=== PATIENT | male | born 1950 | race Caucasian/White ===

== ENCOUNTER 2019-05-04 21:35 | Emergency (ER) | payer MEDICARE, OTHER ==
[~2019-05-04] VITALS: Ht 188 cm; Wt 79.4 kg
--- OUTSIDE RECORDS SUMMARY | 2019-05-04 21:38 | XMS REPORT | Clinical Summary ---
Author Author [facility] Organization [facility] Address Unknown Phone Unavailable Care Team Providers Care Class A Truck Driver Name Role Phone Ernestine Dunham MD PCP Unavailable Juanito Muhammad MD Unavailable Ralf Wilson MD Unavailable Solomon Armstrong MD Unavailable Curly Perez MD Unavailable Unavailable Ric Mitchell MD Unavailable Allergies Comments Active Allergy Reactions Severity Noted Date Penicillins Swelling 10/16/2013 Medications End Date Status Medication Sig Dispensed Refills Start Date Active Tamsulosin HCl 0.4 MG TAKE ONE 90 Cap 3 CAPSIndications: Benign CAPSULE BY 8 non-nodular prostatic MOUTH EVERY hyperplasia, Urinary DAY frequency Active entacapone (COMTAN) 200 Take 1 Tab by 360 Tab 3 MG tablet mouth four 9 times daily. Active carbidopa-levodopa Take 2 Tabs 540 Tab 3 (SINEMET) 25-250 MG per by mouth 3 9 tablet times daily. 02/12/2019 Active Vilazodone HCl 20 MG TABS Take 40 mg by 90 Tab 0 mouth daily 9 for 90 days. Active buPROPion (WELLBUTRIN, Take 1 tablet 120 Tab 0 ZYBAN) 100 MG SR by mouth four 9 tabletIndications: times daily Depression, unspecified with Sinemet depression type, Anxiety and Entacapone Active naltrexone (DEPADE) 50 MG Take 1 Tab by 90 Tab 0 tabletIndications: mouth daily. 9 Alcohol use disorder, mild, in sustained remission Active busPIRone (BUSPAR) 10 MG Take 1 Tab by 90 Tab 0 tablet mouth four 9 times daily. Take 1 tab by mouth four times daily for one week. If tolerated, take 2 tabs by mouth four time daily for a week 11/28/2018 Active busPIRone (BUSPAR) 30 MG Take 1 Tab by 56 Tab 0 tablet mouth four 9 times daily for 14 days. Take in weeks 3 and 4 10/27/2018 Discontinued gabapentin (NEURONTIN) Take 1 Cap by 270 Cap 3 400 MG mouth 3 times 8 capsuleIndications: daily. Spinal stenosis of lumbar region without neurogenic claudication 10/27/2018 Discontinued esomeprazole (NEXIUM) 40 Take 1 Cap by 90 Cap 3 MG capsuleIndications: mouth every 8 Epigastric pain morning (before breakfast). 11/14/2018 Discontinued naltrexone (DEPADE) 50 MG Take 1 Tab by 90 Tab 0 tabletIndications: mouth daily. 9 Alcohol use disorder, mild, in sustained remission 11/14/2018 Discontinued Vilazodone HCl 20 MG TABS Take 20 mg by 60 Tab 0 mouth daily. 9 10/27/2018 Discontinued methylPREDNISolone Take 1 Tab by 21 Tab 0 (MEDROL DOSEPACK) 4 MG mouth See 9 tablet Admin Instructions. 10/27/2018 Discontinued methylPREDNISolone Take 1 Tab by 21 Tab 0 (MEDROL DOSEPACK) 4 MG mouth See 9 tabletIndications: Admin Cervical radiculopathy Instructions. 10/27/2018 Discontinued acetaminophen-codeine 1 TAB TID 90 Tab 1 (TYLENOL #3) 300-30 MG PRN, SEVERE 9 per tabletIndications: PAIN Cervical radiculopathy PATIENT HAS A PINCHED NERVE ON THE RIGHT NECK WITH SEVERE PAIN. 11/14/2018 Discontinued buPROPion (WELLBUTRIN, Take 1 tablet 120 Tab 0 ZYBAN) 100 MG SR by mouth four 9 tabletIndications: times daily Depression, unspecified with Sinemet depression type, Anxiety and Entacapone 10/27/2018 Discontinued busPIRone (BUSPAR) 30 MG Take 1 Tab by 120 Tab 0 tabletIndications: mouth four 9 Anxiety times daily. 10/27/2018 Discontinued Vilazodone HCl 20 MG TABS Take 20 mg by 90 Tab 0 mouth daily. 9 Active Problems Problem Noted Date Glaucoma suspect of both eyes 10/27/2018 Dysphagia 07/09/2018 Last Assessment & Plan: And weak cough Will check swallow eval Sleep-disordered breathing 07/09/2018 Last Assessment & Plan: Pt with history, obesity and anatomy of the upper airway suggestive of sleep disordered breathing. In addition has associated non restorative sleep,nocturnal awakening, daytime sleepiness, parkinson Discussed with patient the pathophysiology of sleep apnea, diagnosis and treatment options Will go ahead and order a sleep study and further managment as indicated Parasomnia 07/09/2018 Last Assessment & Plan: With acting out dreams Will evaluate on sleep study Nuclear senile cataract of both eyes 07/06/2017 MCI (mild cognitive impairment) 07/04/2017 Dermatitis seborrheica 06/07/2017 Actinic keratosis 06/07/2017 Wart 06/07/2017 Benign non-nodular prostatic hyperplasia 09/03/2015 PD (Parkinson's disease) 03/25/2015 Last Assessment & Plan: Progressing Anxiety 03/25/2015 Periodic limb movements of sleep 03/25/2015 Last Assessment & Plan: Not formally diagnosed, trial of gabapentin did not help Mostly leg jerks at sleep onset Will evaluate on sleep study RBD (REM behavioral disorder) 03/25/2015 Last Assessment & Plan: Clinically suspected Will evaluate on sleep study Erectile dysfunction 03/25/2015 ADD (attention deficit disorder) 09/17/2014 Depression 09/17/2014 Tremor 08/15/2014 Resolved Problems Problem Noted Date Resolved Date S/P laminectomy 03/25/2015 12/09/2015 Elevated BP 08/15/2014 12/09/2015 BPH (benign prostatic hyperplasia) 08/15/2014 09/03/2015 Encounters Care Team Description Date Type Specialty Nakita Arriaza MD Annual Exam 10/27/2018 Office Visit Ophthalmology Ernestine Dunham MD 10/17/2018 Orders Only Geriatric Medicine Juanito Muhammad MD Movement Disorder 08/24/2018 Office Visit Neurology Solomon Armstrong MD Shoulder Pain 08/17/2018 Office Visit Physical Medicine and Rehab from Last 3 Months Immunizations Name Administration Dates Next Due Influenza (whole) 05/20/2014 Influenza Hd 12/30/2016, 12/09/2015 Pneumococcal 13-valent 09/03/2015 Conjugate Vaccine Pneumococcal 03/04/2017 Polysaccharide Tdap 07/12/2016 Family History Medical History Relation Name Comments Diabetes Brother Heart Disease Father Heart Attack Father Cancer Mother Ovarian Cancer Mother Heart Disease Other Relation Name Status Comments Brother Brother Alive Father Mother Other Social History Date Tobacco Use Types Packs/Day Years Used Quit: 06/28/2016 Former Smoker 0.5 40 Smokeless Tobacco: Never Used Tobacco Cessation: Ready to Quit: No; Counseling Given: Yes Drinks/Week oz/Week Comments Alcohol Use Former ETOH abuse No Sex Assigned at Date Recorded Not on file Industry Job Start Date Occupation Not on file Not on file Not on file Travel End Travel History Travel Start No recent travel history available. Last Filed Vital Signs Reading Time Taken Comments Vital Sign 115/75 08/24/2018 10:07 AM CDT Blood Pressure 83 08/24/2018 10:07 AM CDT Pulse 36.3 C (97.4 F) 08/17/2018 5:01 PM CDT Temperature 16 07/18/2018 8:08 AM CDT Respiratory Rate 98% 06/30/2017 2:08 PM CDT Oxygen Saturation - - Inhaled Oxygen Concentration 82.6 kg (182 lb) 08/24/2018 10:07 AM CDT Weight 185.4 cm (6' 1") 08/24/2018 10:07 AM CDT Height 24.01 08/24/2018 10:07 AM CDT Body Mass Index Plan of Treatment Care Team Description Date Type Specialty Juanito Muhammad MD [address] [place] [address] [phone] 01/10/2019 Office Visit Neurology Juanito Muhammad MD [address] [place] [address] [phone] 04/30/2019 Office Visit Neurology Juanito Muhammad MD [address] [place] [address] [phone] 08/01/2019 Office Visit Neurology Health Maintenance Due Date Last Done Comments COLON CANCER SCREENIN1950 COLONOSCOPY HEPATITIS C SCREENING 01/22/1968 AAA Screen 2015 MEDICARE AWV 09/02/2016 09/03/2015 FLU VACCINE > 6 MONTHS 10/19/2018 04/27/2018, 12/30/2016, 12/30/2016, Additional history exists FALL SCREEN 08/18/2019 08/17/2018 TETANUS SHOT (ADULT) 07/12/2026 07/12/2016 PREVNAR >=65 (PCV13) Completed 09/03/2015 PNEUMOVAX >=65 (PPSV23) Completed 03/04/2017 Procedures Comments Procedure Name Priority Date/Time Associated Diagnosis OCT, OPTIC NERVE - OU - Routine 10/27/2018 Other disorders of optic BOTH EYES 11:22 AM CDT disc, 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 Reliability: good and adequate. Temporal progression was stable. Temporal thickness was normal. Superior progression was stable. Superior thickness was normal. Nasal progression was stable. Nasal thickness was normal. Inferior progression was stable. Inferior thickness was normal. Left Eye Images reviewed and comparison made to baseline. Reliability: good and adequate. Temporal progression was stable. Temporal thickness was normal. Superior progression was stable. Superior thickness was normal. Nasal progression was stable. Nasal thickness was normal. Inferior progression was stable. Inferior thickness was normal. Notes Stable green 360 * LIPIDS/CORONARY RISK(SLEH) (10/17/2018 12:03 PM CDT) TRIGLYCERIDES 293 mg/dL [facility] CHOLESTEROL 203 mg/dL [facility] HDL 32 mg/dL [facility] LDL CHOLESTEROL 112 mg/dL [facility] Specimen Narrative Performed At Triglyceride Reference Range: [facility] Low Risk <150 [id number] High Risk 200-499 Very High Risk>=500 Cholesterol Reference Range: Low Risk <200 [id number] High Risk>240 HDL Cholesterol Reference Range: Low Risk >=60 High Risk <40 LDL Cholesterol Reference Range: Optimal<100 Near [id number] Mfbdzyynkl350-729 Mtyl287-461 Very High >=190 Performing Organization Address City/State/Zipcode Phone Number [facility] * CBC W/AUTO DIFF WITH PLATELETS (10/17/2018 12:03 PM CDT) WHITE BLOOD 8.7 3.5 - 10.5 K/ L [facility] CELL COUNT RED BLOOD CELL 5.35 4.63 - 6.08 M/ L [facility] COUNT HEMOGLOBIN 16.1 13.7 - 17.5 GM/DL [facility] HEMATOCRIT 48.5 40.1 - 51.0 % [facility] MEAN 90.7 79.0 - 92.[address] [facility] CORPUSCULAR VOLUME MEAN 30.1 25.7 - 32.[address] [facility] CORPUSCULAR HEMOGLOBIN MEAN 33.2 32.3 - 36.5 GM/DL [facility] CORPUSCULAR HEMOGLOBIN CONC RED CELL 13.9 11.6 - 14.4 % [facility] DISTRIBUTION WIDTH PLATELET COUNT 286 150 - 450 K/CU MM [facility] MEAN PLATELET 10.3 9.4 - 12.[address] [facility] VOLUME NUCLEATED RED 0 0 - 0 /[address] [facility] BLOOD CELLS NEUTROPHILS % 72 % [facility] LYMPHOCYTES % 18 % [facility] MONOCYTES % 8 % [facility] EOSINOPHILS % 1 % [facility] BASOPHILS % 1 % [facility] NEUTROPHILS 6.27 (H) 1.78 - 5.38 K/ L [facility] ABSOLUTE COUNT LYMPHOCYTES 1.55 1.32 - 3.57 K/ L [facility] ABSOLUTE COUNT MONOCYTES 0.70 0.30 - 0.82 K/ L [facility] ABSOLUTE COUNT EOSINOPHILS 0.09 0.04 - 0.54 K/ L [facility] ABSOLUTE COUNT BASOPHILS 0.05 0.01 - 0.08 K/ L [facility] ABSOLUTE COUNT IMMATURE 1 0 - 1 % [facility] GRANULOCYTES Specimen Performing Organization Address City/State/Zipcode Phone Number [facility] * HEMOGLOBIN A1C (10/17/2018 12:03 PM CDT) HEMOGLOBIN A1C 7.7 (H) 4.3 - 6.1 % [facility] Specimen Performing Organization Address City/[facility]/Zipcode Phone Number [facility] [place] * COMPREHENSIVE METABOLIC PANEL (10/17/2018 12:03 PM CDT) TOTAL PROTEIN 7.1 6.0 - 8.3 gm/dL [facility] ALBUMIN 4.2 3.5 - 5.0 g/dL [facility] ALKALINE 69 40 - 150 U/L [facility] PHOSPHATASE BILIRUBIN TOTAL 0.7 0.2 - 1.2 mg/dL [facility] SODIUM 139 136 - 145 meq/L [facility] POTASSIUM 4.0 3.5 - 5.1 meq/L [facility] CHLORIDE 105 98 - 107 meq/L [facility] CO2 24 22 - 29 meq/L [facility] BLOOD UREA 18 7 - 21 mg/dL [facility] NITROGEN CREATININE 0.90 0.57 - 1.25 mg/dL [facility] GLUCOSE 246 (H) 70 - 105 mg/dL [facility] CALCIUM 9.5 8.4 - 10.2 mg/dL [facility] AST (SGOT) 11 5 - 34 U/L [facility] ALT (SGPT) 7 6 - 55 U/L [facility] EGFR 84Comment: ESTIMATED GFR IS mL/min/1.[address] [facility] NOT ACCURATE CREATININE CLEARANCE IN PREDICTING GLOMERULAR FILTRATION RATE. ESTIMATED GFR IS NOT APPLICABLE FOR DIALYSIS PATIENTS. Specimen Performing Organization Address City/State/Zipcode Phone Number [facility] from Last 3 Months Insurance Type Payer Benefit Subscriber ID Effective Phone Address Plan / Dates Group Medicare MEDICARE MEDICARE xxxxxxxxxxx 2015- [address] Present [id number] [place] [address] PPO GENERIC PAYOR GENERIC xxxxxxxxxxxx 1992- PPO - Present GENERIC PAYOR
--- OUTSIDE RECORDS SUMMARY | 2019-05-04 21:38 | XMS REPORT | Summary of Care ---
Author Author [facility] Organization [facility] Address Unknown Phone Unavailable Care Team Providers Care Microfilm Equipment Inspector Name Role Phone Ernestine Dunham MD PCP Unavailable Juanito Muhammad MD Unavailable Ralf Wilson MD Unavailable Solomon Armstrong MD Unavailable Curly Perez MD Unavailable Unavailable Ric Mitchell MD Unavailable Reason for Visit * Reason Comments Annual Exam Encounter Details Care Team Description Date Type Department Nakita Arriaza MD [address] [place] [address]. [place] [address] Annual Exam 10/27/2018 Office Visit Department of Ophthalmology [address] [place] [phone] Allergies Comments Active Allergy Reactions Severity Noted Date Penicillins Swelling 10/16/2013 documented as of this encounter (statuses as of 10/27/2018) Medications End Date Status Medication Sig Dispensed [...] by mouth 3 9 tablet times daily. Active naltrexone (DEPADE) 50 MG Take 1 Tab by 90 Tab 0 tabletIndications: mouth daily. 9 Alcohol use disorder, mild, in sustained remission Active Vilazodone HCl 20 MG TABS Take 20 mg by 60 Tab 0 mouth daily. 9 Active buPROPion (WELLBUTRIN, Take 1 tablet 120 Tab 0 ZYBAN) 100 MG SR by mouth four 9 tabletIndications: times daily Depression, unspecified with Sinemet depression type, Anxiety and Entacapone 10/27/2018 Discontinued gabapentin (NEURONTIN) Take 1 Cap by 270 Cap 3 400 MG mouth 3 times 8 capsuleIndications: daily. Spinal stenosis of lumbar region without neurogenic claudication 10/27/2018 Discontinued esomeprazole (NEXIUM) 40 Take 1 Cap by 90 Cap 3 MG capsuleIndications: mouth every 8 Epigastric pain morning (before breakfast). 10/27/2018 Discontinued methylPREDNISolone Take 1 Tab by [...] ON THE RIGHT NECK WITH SEVERE PAIN. 10/27/2018 Discontinued busPIRone (BUSPAR) 30 MG Take 1 Tab by 120 Tab 0 tabletIndications: mouth four 9 Anxiety times daily. 10/27/2018 Discontinued Vilazodone HCl 20 MG TABS Take 20 mg by 90 Tab 0 mouth daily. 9 documented as of this encounter (statuses as of 10/27/2018) Active Problems Problem Noted Date Glaucoma suspect [...] deficit disorder) 09/17/2014 Depression 09/17/2014 Tremor 08/15/2014 documented as of this encounter (statuses as of 10/27/2018) Resolved Problems Problem Noted Date Resolved Date S/P laminectomy 03/25/2015 12/09/2015 Elevated BP 08/15/2014 12/09/2015 BPH (benign prostatic hyperplasia) 08/15/2014 09/03/2015 documented as of this encounter (statuses as of 10/27/2018) Immunizations Name Administration Dates Next Due Influenza (whole) 05/20/2014 Influenza Hd 12/30/2016, 12/09/2015 Pneumococcal 13-valent 09/03/2015 Conjugate Vaccine Pneumococcal 03/04/2017 Polysaccharide Tdap 07/12/2016 documented as of this encounter Social History Date Tobacco Use Types Packs/Day Years Used Quit: 06/28/2016 Former Smoker 0.5 40 Smokeless Tobacco: Never Used Drinks/Week oz/Week Comments Alcohol Use Former ETOH abuse No Sex Assigned at Date Recorded Not on file Industry Job Start Date Occupation Not on file Not on file Not on file Travel End Travel History Travel Start No recent travel history available. documented as of this encounter Last Filed Vital Signs Not on filedocumented in this encounter Progress Notes * Nakita Arriaza MD - 10/27/2018 9:15 AM CDT Referring Doctor Self Referral No address on file STUDY/STUDIES: OCT RNFL: normal 360 ASSESSMENT: 1. Nuclear senile cataract of both eyes 2. Glaucoma suspect of both eyes - PLAN: 1) Peripheral vision loss - consider tilter nerves with deep cupping, OCT and HVF today obtained - however all looks normal - will consider patient glaucoma suspect by C;D ratio 2) cataract ou - Cataract - visually significant, diminished quality of vision and affecting ac tivities of daily living such as reading, driving, mobility. Risks, benefits, alternative of cataract surgery discussed with patient includin g but not limited to loss of vision, bleeding, infection, glaucoma, retina probl ems, swelling, need for more procedures. Patient elects to proceed with surgery understanding the alternative is to wait or try glasses. Observe for now ATTESTATIONS: I have reviewed the PMH, SH, FHX, ROS, MEDS, ALLERGIES and TECH NOTE, and have u pdated the computerized patient record appropriately. The risks, benefits, and alternatives of treatment were discussed with the patie nt (& family, if present). All questions regarding diagnosis and treatment were answered to the patient's satisfaction. documented in this encounter Plan of Treatment Care Team Description Date Type Specialty Juanito Muhammad MD [address] [place] [address] [phone] 01/10/2019 Office Visit Neurology Juanito Muhammad MD [address] [place] [address] [phone] 04/30/2019 Office Visit Neurology Juanito Muhammad MD [address] [place] [address] [phone] 08/01/2019 Office Visit Neurology Health Maintenance Due Date Last Done Comments COLON CANCER SCREENIN1950 COLONOSCOPY HEPATITIS C SCREENING 01/22/1968 AAA Screen 2015 MEDICARE AWV 09/02/2016 09/03/2015 FLU VACCINE > 6 MONTHS 10/19/2018 04/27/2018, 12/30/2016, 12/30/2016, Additional history exists FALL SCREEN 08/18/2019 08/17/2018 TETANUS SHOT (ADULT) 07/12/2026 07/12/2016 PREVNAR >=65 (PCV13) Completed 09/03/2015 PNEUMOVAX >=65 (PPSV23) Completed 03/04/2017 documented as of this encounter Procedures Comments Procedure Name Priority Date/Time Associated Diagnosis OCT, OPTIC NERVE - OU - Routine 10/27/2018 Other disorders of optic BOTH EYES 11:22 AM CDT disc, 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 Notes Stable green 360 documented in this encounter Visit Diagnoses Diagnosis Nuclear senile cataract of both eyes - Primary Glaucoma suspect of both eyes Preglaucoma, unspecified Other disorders of optic disc, right eye documented in this encounter Insurance Type Payer Benefit Subscriber ID Effective Phone Address Plan / Dates Group Medicare MEDICARE MEDICARE xxxxxxxxxxx 2015- [address] Present [id number] [place] [address] PPO GENERIC PAYOR GENERIC xxxxxxxxxxxx 1992- PPO - Present GENERIC PAYOR documented as of this encounter
--- OUTSIDE RECORDS SUMMARY | 2019-05-04 21:38 | XMS REPORT | Clinical Summary ---
Author Author [facility] Organization [facility] Address Unknown Phone Unavailable Care Team Providers Care Lead Game Designer Name Role Phone Ernestine Dunham MD PCP [...] mouth 3 9 tablet times daily. Active Vilazodone HCl 20 MG TABS Take 40 mg by 0 mouth. Active naltrexone (DEPADE) 50 MG Take 1 Tab by 90 Tab 0 tabletIndications: mouth daily. 9 Alcohol use disorder, mild, in sustained remission 03/22/2019 Active Vilazodone HCl 20 MG TABS Take 40 mg by 90 Tab 0 mouth daily 9 for 90 days. Active buPROPion (WELLBUTRIN, Take 1 tablet 120 Tab 0 ZYBAN) 100 MG SR by mouth four 9 tabletIndications: times daily Depression, unspecified with Sinemet depression type, Anxiety and Entacapone Active busPIRone (BUSPAR) 30 MG Take 1 Tab by 120 Tab 1 tablet mouth four 9 times daily. 12/19/2018 Discontinued Vilazodone HCl 20 MG TABS Take 40 mg by 90 Tab 0 mouth daily 9 for 90 days. 12/19/2018 Discontinued buPROPion (WELLBUTRIN, Take 1 tablet 120 Tab 0 ZYBAN) 100 MG SR by mouth four 9 tabletIndications: times daily Depression, unspecified with Sinemet depression type, Anxiety and Entacapone 12/19/2018 Discontinued naltrexone (DEPADE) 50 MG Take 1 Tab by 90 Tab 0 tabletIndications: mouth daily. 9 Alcohol use disorder, mild, in sustained remission 12/19/2018 Discontinued busPIRone (BUSPAR) 10 MG Take 1 Tab by 90 Tab 0 tablet mouth four 9 times daily. Take 1 tab by mouth four times daily for one week. If tolerated, take 2 tabs by mouth four time daily for a week 11/28/2018 busPIRone (BUSPAR) 30 MG Take 1 Tab by 56 Tab 0 tablet mouth four 9 times daily for 14 days. Take in weeks 3 and 4 Active Problems Problem Noted Date Glaucoma suspect [...] non-nodular prostatic hyperplasia 09/03/2015 PD (Parkinson's disease) (HCCode) 03/25/2015 Last Assessment & Plan: Progressing Anxiety [...] Encounters Care Team Description Date Type Specialty Janene Cunningham NP 11/28/2018 Orders Only Geriatric Medicine Nakita Arriaza MD Annual Exam 10/27/2018 Office Visit Ophthalmology Ernestine Dunham MD 10/17/2018 Orders Only Geriatric Medicine from Last 3 Months Immunizations Name Administration [...] Signs Reading Time Taken Comments Vital Sign 112/69 12/19/2018 9:28 AM CDT Blood Pressure 73 12/19/2018 9:28 AM CDT Pulse 36.3 C (97.4 F) 08/17/2018 5:01 PM CDT Temperature 16 12/19/2018 9:28 AM CDT Respiratory Rate 98% 06/30/2017 2:08 PM CDT Oxygen Saturation - - Inhaled Oxygen Concentration 80.7 kg (177 lb 14.4 oz) 12/19/2018 9:28 AM CDT Weight 185.4 cm (6' 1") 12/19/2018 9:28 AM CDT Height 23.47 12/19/2018 9:28 AM CDT Body Mass Index Plan of Treatment Care Team Description Date Type Specialty Juanito Muhammad MD [address] Floor[address] [place] [address] [phone] 01/10/2019 Office Visit Neurology Juanito Muhammad MD [address] Floor[address] [place] [address] [phone] 04/30/2019 Office Visit Neurology Juanito Muhammad MD [address] [place] [address] [phone] 08/01/2019 Office Visit Neurology Health Maintenance Due [...] Comments Procedure Name Priority Date/Time Associated Diagnosis HEPATIC FUNCTION PANEL Routine 11/28/2018 11:48 AM CDT LIPIDS/CORONARY Routine 11/28/2018 RISK(SLEH) 11:48 AM CDT OCT, OPTIC NERVE - OU - Routine 10/27/2018 Other disorders of optic BOTH EYES 11:22 AM CDT disc, 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 TRIGLYCERIDES 150 mg/dL [facility] CHOLESTEROL 179 mg/dL [facility] HDL 34 mg/dL [facility] LDL CHOLESTEROL 115 mg/dL [facility] Specimen Narrative Performed At Triglyceride Reference Range: [facility] Low Risk <150 [id number] High Risk 200-499 Very High Risk>=500 Cholesterol Reference Range: Low Risk <200 [id number] High Risk>240 HDL Cholesterol Reference Range: Low Risk >=60 High Risk <40 LDL Cholesterol Reference Range: Optimal<100 Near Wutowvp151-559 Acxhcoovox522-252 Fauf318-375 Very High >=190 Performing Organization Address [facility] Phone Number [facility] * HEPATIC FUNCTION PANEL (11/28/2018 11:48 AM CDT) TOTAL PROTEIN 7.5 6.0 - 8.3 gm/dL [facility] ALBUMIN 4.5 3.5 - 5.0 g/dL [facility] BILIRUBIN TOTAL 1.0 0.2 - 1.2 mg/dL [facility] BILIRUBIN 0.3 0.1 - 0.5 mg/dL [facility] DIRECT ALKALINE 56 40 - 150 U/L [facility] PHOSPHATASE AST (SGOT) 10 5 - 34 U/L [facility] ALT (SGPT) <6 (L) 6 - 55 U/L [facility] Specimen Performing Organization Address [facility] Phone Number [facility] * OCT, OPTIC NERVE - OU - [...] was normal. Notes Stable green 360 * CBC W/AUTO DIFF WITH PLATELETS (10/17/2018 [...] CELL 13.9 11.6 - 14.4 % [facility] DISTRIBUTION WIDTH PLATELET COUNT 286 150 - [...] IMMATURE 1 0 - 1 % [facility] GRANULOCYTES Specimen Performing Organization Address City/State/Zipcode Phone Number [facility] * HEMOGLOBIN A1C (10/17/2018 12:03 PM CDT) HEMOGLOBIN A1C 7.7 (H) 4.3 - 6.1 % [facility] Specimen Performing Organization Address City/[facility] Phone Number [facility] * COMPREHENSIVE METABOLIC [...] [address] Present [id number] [place] [address] PPO GENERIC PAYOR GENERIC xxxxxxxxxxxx 1992- PPO - Present GENERIC PAYOR
--- OUTSIDE RECORDS SUMMARY | 2019-05-04 21:38 | XMS REPORT | Clinical Summary ---
Author Author [facility] Organization [facility] Address Unknown Phone Unavailable Care Team Providers Care Pipe Fitter Supervisor Name Role Phone Ernestine Dunham MD PCP Juanito Muhammad MD Unavailable aRlf Wilson MD Unavailable Solomon Armstrong MD Unavailable Curly Perez MD Unavailable Unavailable Ric Mitchell MD Unavailable Allergies Comments Active Allergy Reactions Severity Noted Date Penicillins Swelling 10/16/2013 Medications End Date Status Medication Sig Dispensed Refills Start Date Active Tamsulosin HCl 0.4 MG TAKE ONE 90 Cap 3 CAPSIndications: Benign CAPSULE BY 8 non-nodular prostatic MOUTH EVERY hyperplasia, Urinary DAY frequency Active metformin (GLUCOPHAGE) Take 500 mg 0 500 MG tablet by mouth two times daily. Active famotidine (PEPCID) 20 MG Take 20 mg by 0 tablet mouth two times daily. Active carbidopa-levodopa Take 3 Tabs 810 Tab 3 (SINEMET) 25-250 MG per by mouth 3 9 tablet times daily. Active entacapone (COMTAN) 200 Take 1 Tab by 360 Tab 3 MG tablet mouth four 9 times daily. Active naproxen (NAPROSYN) 500 Take 1 Tab by 60 Tab 1 MG tablet mouth 2 times 0 daily (with meals). With food Active methylPREDNISolone Take 1 Tab by 21 Tab 0 (MEDROL DOSEPACK) 4 MG mouth See 0 tabletIndications: Spinal Admin stenosis of lumbar region Instructions. with radiculopathy Active Gabapentin, Once-Daily, One to three 180 Tab 0 (GRALISE) 300 MG tablets at 0 TABSIndications: Spinal bedtime. stenosis of lumbar region Start at one with radiculopathy tablet at bedtime. Active buPROPion (WELLBUTRIN, Take 1 tablet 120 Tab 1 ZYBAN) 100 MG SR by mouth four 0 tabletIndications: times daily Depression, unspecified with Sinemet depression type, Anxiety and Entacapone Active busPIRone (BUSPAR) 30 MG Take 1 Tab by 120 Tab 1 tablet mouth four 0 times daily. Active Vilazodone HCl 20 MG TABS Take 40 mg by 60 Tab 1 mouth daily. 0 Active naltrexone (DEPADE) 50 MG Take 1 Tab by 30 Tab 1 tabletIndications: mouth daily. 0 Alcohol use disorder, mild, in sustained remission 04/17/2019 Discontinued (Reorder) buPROPion (WELLBUTRIN, Take 1 tablet 120 Tab 1 ZYBAN) 100 MG SR by mouth four 9 tabletIndications: times daily Depression, unspecified with Sinemet depression type, Anxiety and Entacapone 04/17/2019 Discontinued (Reorder) busPIRone (BUSPAR) 30 MG Take 1 Tab by 120 Tab 1 tablet mouth four 9 times daily. 04/17/2019 Discontinued (Reorder) Vilazodone HCl 20 MG TABS Take 40 mg by 60 Tab 1 mouth daily. 9 04/17/2019 Discontinued (Reorder) naltrexone (DEPADE) 50 MG Take 1 Tab by 30 Tab 1 tabletIndications: mouth daily. 9 Alcohol use disorder, mild, in sustained remission Active Problems Problem Noted Date Glaucoma suspect [...] Encounters Care Team Description Date Type Specialty Solomon Armstrong MD Back Pain; Leg Pain 04/13/2019 Office Visit Physical Medicine and Rehab Solomon Armstrong MD Injections 04/03/2019 Telephone Physical Medicine and Rehab Solomon Armstrong MD 03/26/2019 Orders Only Physical Medicine and Rehab Juanito Muhammad MD 02/28/2019 Abstract Neurology Ernestine Dunham MD 02/26/2019 Orders Only Geriatric Medicine Ralf Wilson MD Refill 02/04/2019 Refill Neurology Ernestine Dunham MD Refill 02/04/2019 Refill General Internal Medicine Juanito Muhammad MD Refill 02/04/2019 Refill Neurology Ralf Wilson MD Refill 02/04/2019 Refill Neurology Ernestine Dunham MD Refill 02/04/2019 Refill General Internal Medicine Juanito Muhammad MD Refill 02/04/2019 Refill Neurology from Last 3 Months Immunizations Name Administration [...] Signs Reading Time Taken Comments Vital Sign 117/72 04/17/2019 9:03 AM GENERAL FARM MANAGER Blood Pressure 83 04/17/2019 9:03 AM GENERAL FARM MANAGER Pulse 36.3 C (97.4 F) 08/17/2018 5:01 PM CDT Temperature 16 04/17/2019 9:03 AM GENERAL FARM MANAGER Respiratory Rate 98% 06/30/2017 2:08 PM CDT Oxygen Saturation - - Inhaled Oxygen Concentration 79.5 kg (175 lb 3.2 oz) 04/17/2019 9:03 AM GENERAL FARM MANAGER Weight 185.4 cm (6' 1") 04/17/2019 9:03 AM GENERAL FARM MANAGER Height 23.11 04/17/2019 9:03 AM GENERAL FARM MANAGER Body Mass Index Plan of Treatment Care Team Description Date Type Specialty Juanito Muhammad MD [address] [place] [address] [phone] 04/30/2019 Office Visit Neurology Juanito Muhammad MD [address] [place] [address] [phone] 08/01/2019 Office Visit Neurology Juanito Muhammad MD [address] [place] [address] [phone] 10/24/2019 Office Visit Neurology Health Maintenance Due Date Last Done Comments COLON CANCER SCREENIN1950 COLONOSCOPY AAA Screen 2015 FLU VACCINE > 6 MONTHS 10/19/2018 04/27/2018, 12/30/2016, 12/30/2016, Additional history exists FALL SCREEN 08/18/2019 08/17/2018 MEDICARE AWV (Subsequent) 02/27/2020 02/26/2019, 09/03/2015 TETANUS SHOT (ADULT) 07/12/2026 07/12/2016 PREVNAR >=65 (PCV13) Completed 09/03/2015 PNEUMOVAX >=65 (PPSV23) Completed 03/04/2017 HEPATITIS C SCREENING Completed 02/26/2019 Procedures Comments Procedure Name Priority Date/Time Associated Diagnosis DEXA BONE DENSITY AXIAL Routine 03/30/2019 SKELETON 2:49 PM GENERAL FARM MANAGER HEMOGLOBIN A1C Routine 02/26/2019 9:28 AM GENERAL FARM MANAGER VITAMIN D 25 HYDROXY Routine 02/26/2019 9:28 AM GENERAL FARM MANAGER HEPATITIS C ANTIBODY Routine 02/26/2019 9:28 AM GENERAL FARM MANAGER BASIC METABOLIC PANEL Routine 02/26/2019 9:28 AM GENERAL FARM MANAGER from Last 3 Months Results * DEXA BONE DENSITY AXIAL SKELETON (03/30/2019 2:49 PM GENERAL FARM MANAGER) Specimen Impressions Performed At IMPRESSION: [facility] Bone mineralization of the left femoral neck: Osteopenia. Bone mineralization of the lumbar spine: Normal. DIAGNOSTIC CRITERIA: Normal: BMD measurement less than one standard deviation from young adult population Osteopenia: BMD measurement between one and 2.5 standard deviations corresponds to a 1 - 2x increased risk of an osteoporotic fracture of the lumbar spine as compared to the young adult population. Osteoporosis: BMD measurement greater than 2.5 standard deviations corresponds to a 2x increased risk of an osteoporotic fracture of the lumbar spine as compared to the young adult population. Severe osteoporosis: Osteoporosis and one or more fragility fractures Signed: Thanh Ingram MD Report Verified Date/Time: 03/30/2019 14:56:57 Reading Location: [address] Radiology Reading Room Narrative Performed At FINAL REPORT [facility] EXAM: Bone density study HISTORY: parkinsons disease FINDINGS: LEFT FEMORAL NECK: Bone mineral density measurement: 0.766 gm/cm2 Standard deviation from young adult population (T score): -1.2 Standard deviation for age adjusted population (Z score): 0.0 LUMBAR SPINE: Bone mineral density measurement: 1.228 gm/cm2 Standard deviation from young adult population (T score): 1.2 Standard deviation for age adjusted population (Z score): 2.1 Procedure Note Charles, Rad Results In - 03/30/2019 2:59 PM GENERAL FARM MANAGER FINAL REPORT EXAM: Bone density study HISTORY: parkinsons disease FINDINGS: LEFT FEMORAL NECK: Bone mineral density measurement: 0.766 gm/cm2 Standard deviation from young adult population (T score): -1.2 Standard deviation for age adjusted population (Z score): 0.0 LUMBAR SPINE: Bone mineral density measurement: 1.228 gm/cm2 Standard deviation from young adult population (T score): 1.2 Standard deviation for age adjusted population (Z score): 2.1 IMPRESSION IMPRESSION: Bone mineralization of the left femoral neck: Osteopenia. Bone mineralization of the lumbar spine: Normal. DIAGNOSTIC CRITERIA: Normal: BMD measurement less than one standard deviation from young adult population Osteopenia: BMD measurement between one and 2.5 standard deviations corresponds to a 1 - 2x increased risk of an osteoporotic fracture of the lumbar spine as compared to the young adult population. Osteoporosis: BMD measurement greater than 2.5 standard deviations corresponds to a 2x increased risk of an osteoporotic fracture of the lumbar spine as compared to the young adult population. Severe osteoporosis: Osteoporosis and one or more fragility fractures Signed: Thanh Ingram MD Report Verified Date/Time: 03/30/2019 14:56:57 Reading Location: [address] Radiology Reading Room Performing Organization Address City/[facility] Phone Number [facility] [address] [facility] [place] [address] * HEPATITIS C ANTIBODY (02/26/2019 9:28 AM GENERAL FARM MANAGER) HEP C ANTIBODY Nonreactive Nonreactive [facility] Specimen Performing Organization Address City/[facility] Phone Number [facility] * VITAMIN D 25 HYDROXY (02/26/2019 9:28 AM GENERAL FARM MANAGER) VITAMIN D 18.9 6.6 - 49.9 ng/mL [facility] 25-HYDROXY Specimen Narrative Performed At Effective 12/29/2016: Reference Range Change [facility] New: 6.6-49.9 ng/mL Previous: 13.0-47.8 ng/mL Recommended Vitamin D Target Range: 30.0-40.0 ng/mL Performing Organization Address City/State[facility] Phone Number [facility] * HEMOGLOBIN A1C (02/26/2019 9:28 AM GENERAL FARM MANAGER) HEMOGLOBIN A1C 6.4 (H) 4.3 - 6.1 % [facility] Specimen Performing Organization Address City/[facility] Phone Number [facility] * BASIC METABOLIC PANEL (02/26/2019 9:28 AM GENERAL FARM MANAGER) SODIUM 139 136 - 145 meq/L [facility] POTASSIUM 4.0 3.5 - 5.1 meq/L [facility] CHLORIDE 106 98 - 107 meq/L [facility] CO2 24 22 - 29 meq/L [facility] BLOOD UREA 13 7 - 21 mg/dL [facility] NITROGEN CREATININE 0.79 0.57 - 1.25 mg/dL [facility] GLUCOSE 120 (H) 70 - 105 mg/dL [facility] CALCIUM 8.9 8.4 - 10.2 mg/dL [facility] EGFR 97Comment: ESTIMATED GFR IS mL/min/1.[address] [facility] NOT ACCURATE CREATININE CLEARANCE IN PREDICTING GLOMERULAR FILTRATION RATE. ESTIMATED GFR IS NOT APPLICABLE FOR DIALYSIS PATIENTS. Specimen Performing Organization Address [facility] Phone Number [facility] from Last 3 Months Insurance Type Payer Benefit Subscriber ID Effective Phone Address Plan / Dates Group Medicare MEDICARE MEDICARE xxxxxxxxxxx 2015- [address] Present [id number] [place] [address] PPO GENERIC PAYOR GENERIC xxxxxxxxxxxx 1992- PPO - Present GENERIC PAYOR
--- OUTSIDE RECORDS SUMMARY | 2019-05-04 21:38 | XMS REPORT | Summary of Care ---
Author Author [facility] Organization [facility] Address Unknown Phone Unavailable Care Team Providers Care Optometry Assistant Name Role Phone Ernestine Dunham MD PCP Unavailable Juanito Sheikh MD Unavailable Ralf Wilson MD Unavailable Solomon Armstrong MD Unavailable Curly Perez MD Unavailable Unavailable Ric Mitchell MD Unavailable Reason for Visit * Reason Comments Movement Disorder Encounter Details Care Team Description Date Type Department Juanito Sheikh MD [address] [facility] 9th [address] [place] [address] Movement Disorder 01/10/2019 Office Visit [facility] Neurology [address] [facility] 9th [address], [address] [place] [address] Allergies Comments Active Allergy Reactions Severity Noted Date Penicillins Swelling 10/16/2013 documented as of this encounter (statuses as of 01/10/2019) Medications End Date Status Medication Sig Dispensed [...] use disorder, mild, in sustained remission Active buPROPion (WELLBUTRIN, Take 1 tablet 120 Tab 0 ZYBAN) 100 MG SR by mouth four 9 tabletIndications: times daily Depression, unspecified with Sinemet depression type, Anxiety and Entacapone Active busPIRone (BUSPAR) 30 MG Take 1 Tab by 120 Tab 1 tablet mouth four 9 times daily. Active metformin (GLUCOPHAGE) Take 500 mg 0 500 MG tablet by mouth two times daily. Active famotidine (PEPCID) 20 MG Take 20 mg by 0 tablet mouth two times daily. 01/10/2019 Discontinued Vilazodone HCl 20 MG TABS Take 40 mg by 90 Tab 0 mouth daily 9 for 90 days. documented as of this encounter (statuses as of 01/10/2019) Active Problems Problem Noted Date Glaucoma suspect [...] as of this encounter (statuses as of 01/10/2019) Resolved Problems Problem Noted Date Resolved Date S/P laminectomy 03/25/2015 12/09/2015 Elevated BP 08/15/2014 12/09/2015 BPH (benign prostatic hyperplasia) 08/15/2014 09/03/2015 documented as of this encounter (statuses as of 01/10/2019) Immunizations Name Administration Dates Next Due Influenza [...] of this encounter Last Filed Vital Signs Reading Time Taken Comments Vital Sign 109/65 01/10/2019 9:05 AM CDT Blood Pressure 91 01/10/2019 9:05 AM CDT Pulse - - Temperature - - Respiratory Rate - - Oxygen Saturation - - Inhaled Oxygen Concentration 82.6 kg (182 lb 1.6 oz) 01/10/2019 9:05 AM CDT Weight 185.4 cm (6' 1") 01/10/2019 9:05 AM CDT Height 24.03 01/10/2019 9:05 AM CDT Body Mass Index documented in this encounter Progress Notes * Juanito Sheikh MD - 01/10/2019 9:00 AM CDT FOLLOW-UP VISIT History The patient is a 68 y.o. male with PD The patient states he is stable but has more trouble with freezing especially in the L foot. 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 He shuffles in AM and has freezing. His complains of his apathy and inacti vity. 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 Levodopa Latency: 30 Min; Duration of Benefit: 4 Hrs; %Dyskinesia: 0 (t otal waking time) "OFF" SXs: increased shuffling and freezing Dyskinesia (type/distribution): none Examination: BP 109/65 (BP Location: left arm, Patient Position: Sitting, Cuff Size: regular) | Pulse 91 | Ht 6' 1" (1.854 m) | Wt 182 lb 1.6 oz (82.6 kg) | BMI 24.03 kg /m Examination was normal except 1+ hypomimia, 1+ body bradykinesia, 1+ shuffling g ait, 2+ R hand tremor, 1+ arising from chair, 2+ shuffling gait and freezing whe n turning, 2+ body bradykinesia, no dyskinesia. Current Outpatient Medications Medication Sig Dispense Refill buPROPion (WELLBUTRIN, ZYBAN) 100 MG SR tablet Take 1 tablet by mouth four t imes daily with Sinemet and Entacapone 120 Tab 0 busPIRone (BUSPAR) 30 MG tablet Take 1 Tab by mouth four times daily. 120 Ta b 1 carbidopa-levodopa (SINEMET) 25-250 MG per tablet Take 2 Tabs by mouth 3 naveed es daily. 540 Tab 3 entacapone (COMTAN) 200 MG tablet Take 1 Tab by mouth four times daily. 360 Tab 3 famotidine (PEPCID) 20 MG tablet Take 20 mg by mouth two times daily. metformin (GLUCOPHAGE) 500 MG tablet Take 500 mg by mouth two times daily. naltrexone (DEPADE) 50 MG tablet Take 1 Tab by mouth daily. 90 Tab 0 Tamsulosin HCl 0.4 MG CAPS TAKE ONE CAPSULE BY MOUTH EVERY DAY 90 Cap 3 Vilazodone HCl 20 MG TABS Take 40 mg by mouth. No current facility-administered medications for this visit. Diagnosis: Patient Active Problem List Diagnosis Tremor ADD (attention deficit disorder) Depression PD (Parkinson's disease) (HCCode) Anxiety Periodic limb movements of sleep RBD (REM behavioral disorder) Erectile dysfunction Benign non-nodular prostatic hyperplasia Dermatitis seborrheica Actinic keratosis Wart MCI (mild cognitive impairment) Nuclear senile cataract of both eyes Dysphagia Sleep-disordered breathing Parasomnia Glaucoma suspect of both eyes Assessment and Plan: Sinemet 25/250 2 tabs qid to be increased to 3 tabs tid Entacapone 200 mg qid to be changed to 1 tab tid He will start PT/OT at [facility] Discussed results of neuropsychological testing which showed moderate cognitive decline Rx for walker with a laser I personally interviewed and examined the patient. A comprehensive review of sys tems was performed and positive findings were recorded. Complex decision making included a review of multiple treatment options for the primary as well as comor bid conditions. In addition to counseling about regular exercise program, I disc ussed with the patient possible side effects of prescribed treatments such as dr camarillo and other potential risks. I also discussed the importance of regular c heck-ups with the primary care physician. After addressing all questions, I prov ided counseling and education as appropriate. The patient was invited to communi dilan with us via [employer] and to review our website [email or web address] for further information. More than 50% of the visit was spent counseling, discussing diagnosis and progno sis, and educating about the disease and available resources. JUANITO SHEIKH M.D. Professor of Neurology Distinguished Chair in Movement Disorders Director, [facility] Department of Neurology [address] [facility] [address], [place]: [facility] [address] [place] [address] or [phone] Web: [email or web address] documented in this encounter Plan of Treatment Care Team Description Date Type Specialty Juanito Sheikh MD [address] [facility] [address] [place] [address] [phone] 04/30/2019 Office [place] [address] [place] [address] [address] [place], [place] [id number] 08/01/2019 Office Visit Neurology Health Maintenance Due Date Last Done Comments COLON CANCER SCREENIN1950 COLONOSCOPY HEPATITIS C SCREENING 01/22/1968 AAA Screen 2015 MEDICARE AWV 09/02/2016 09/03/2015 FLU VACCINE > 6 MONTHS 10/19/2018 04/27/2018, 12/30/2016, 12/30/2016, Additional history exists FALL SCREEN 08/18/2019 08/17/2018 TETANUS SHOT (ADULT) 07/12/2026 07/12/2016 PREVNAR >=65 (PCV13) Completed 09/03/2015 PNEUMOVAX >=65 (PPSV23) Completed 03/04/2017 documented as of this encounter Results Not on filedocumented in this encounter Visit Diagnoses Diagnosis PD (Parkinson's disease) (HCCode) - Primary Paralysis agitans documented in this encounter Insurance Type Payer Benefit Subscriber ID Effective Phone Address Plan / Dates Group Medicare MEDICARE MEDICARE xxxxxxxxxxx 2015- [address] Present [id number] [place] [address] PPO GENERIC PAYOR GENERIC xxxxxxxxxxxx 1992- PPO - Present GENERIC PAYOR documented as of this encounter
--- OUTSIDE RECORDS SUMMARY | 2019-05-04 21:38 | XMS REPORT ---
Author Author [facility] Address Unknown Phone Unavailable Care Team Providers Care Residential Real Estate Sales Manager Name Role Phone SHYLAJOSAFATVASQUEZ MALHOTRA Unavailable Unavailable NORMA DAIGLE Unavailable Unavailable Problems This patient has no known problems. Allergies, Adverse Reactions, Alerts This patient has no known allergies or adverse reactions. Medications This patient has no known medications. Results Test Description Test Time Test Comments Text Results Atomic Results Result Comments RAD, BONE DENSITY STUDY 2019-03-30 14:56:00 Reason for Exam:->parkinsons disease FINAL REPORT EXAM: Bone density study HISTORY: parkinsons disease FINDINGS:LEFT FEMORAL NECK: Bone mineral density measurement: 0.766 gm/qu9Bdajpotl deviation from young adult population (T score): -1.2Standard deviation for age adjusted population (Z score): 0.0 LUMBAR SPINE: Bone mineral density measurement: 1.228 gm/cq1Ljyitzqr deviation from young adult population (T score): 1.2Standard deviation for age adjusted population (Z score): 2.1 IMPRESSION: Bone mineralization of the left femoral neck: Osteopenia. Bone mineralization of the lumbar spine: Normal. DIAGNOSTIC CRITERIA:Normal: BMD measurement less than one standard deviation from young adult populationOsteopenia: BMD measurement between one and 2.5 standard deviations corresponds to a 1 - 2x increased risk of an osteoporotic fracture of the lumbar spine as compared to the young adult population. Osteoporosis: BMD measurement greater than 2.5 standard deviations corresponds to a 2x increased risk of an os teoporotic fracture of the lumbar spine as compared to the young adult population. Severe osteoporosis: Osteoporosis and one or more fragility fractures Signed: Thanh Ingram Verified Date/Time: 03/30/2019 14:56:57 Reading Location: [address] Radiology Reading Room GLOBIN A1C 2019-02-26 15:21:00 HEMOGLOBIN A1C (BEAKER) (test wgjv=961) 6.4 % 4.3-6.1 HEPATITIS C [id number] 14:38:00* Test Item Value Reference Range Comments HEPATITIS C ANTIBODY (BEAKER) (test mzww=764) Nonreactive Nonreactive VITAMIN D, 21-[id number] 14:38:00* Test Item Value Reference Range Comments VITAMIN D 25-OH (BEAKER) (test vgfp=9674) 18.9 ng/mL 6.6-49.9 Effective 12/29/2016: Reference Range ChangeNew: 6.6-49.9 ng/mL Previous: 13.0 -47.8 ng/mLRecommended Vitamin D Target Range: 30.0-40.0 ng/mLBASIC METABOLIC [id number] 14:19:00* Test Item Value Reference Range Comments SODIUM (BEAKER) (test hzlw=967) 139 meq/L 136-145 POTASSIUM (BEAKER) (test xsyv=762) 4.0 meq/L 3.5-5.1 CHLORIDE (BEAKER) (test wfud=062) 106 meq/L 98-107 CO2 (BEAKER) (test guea=426) 24 meq/L 22-29 BLOOD UREA NITROGEN (BEAKER) (test rfvk=145) 13 mg/dL 7-21 CREATININE (BEAKER) (test laot=339) 0.79 mg/dL 0.57-1.25 GLUCOSE RANDOM (BEAKER) (test xxxg=775) 120 mg/dL 70-105 CALCIUM (BEAKER) (test rshu=091) 8.9 mg/dL 8.4-10.2 EGFR (BEAKER) (test khpw=7487) 97 mL/min/1.73 sq m ESTIMATED GFR IS NOT ACCURATE CREATININE CLEARANCE IN PREDICTING GLOMERULAR FILTRATION RATE. ESTIMATED GFR IS NOT APPLICABLE FOR DIALYSIS PATIENTS. HEMOGLOBIN [id number] 13:31:00* Test Item Value Reference Range Comments HEMOGLOBIN A1C (BEAKER) (test htxz=344) 6.5 % 4.3-6.1 HEPATIC FUNCTION [id number] 15:00:00* Test Item Value Reference Range Comments TOTAL PROTEIN (BEAKER) (test dxnj=702) 7.5 gm/dL 6.0-8.3 ALBUMIN (BEAKER) (test djxi=0927) 4.5 g/dL 3.5-5.0 BILIRUBIN TOTAL (BEAKER) (test ikpe=695) 1.0 mg/dL 0.2-1.2 BILIRUBIN DIRECT (BEAKER) (test smrh=779) 0.3 mg/dL 0.1-0.5 ALKALINE PHOSPHATASE (BEAKER) (test igin=370) 56 U/L 40-150 AST (SGOT) (BEAKER) (test tbll=415) 10 U/L 5-34 ALT (SGPT) (BEAKER) (test dcas=832) < U/L 6-55 LIPID [id number] 14:48:00* Test Item Value Reference Range Comments TRIGLYCERIDES (BEAKER) (test ctsr=677) 150 mg/dL CHOLESTEROL (BEAKER) (test kooy=434) 179 mg/dL HDL CHOLESTEROL (BEAKER) (test lfrf=306) 34 mg/dL LDL CHOLESTEROL CALCULATED (BEAKER) (test imat=050) 115 mg/dL Triglyceride Reference Range: Low Risk <150 Borderline 150-199 High Risk 200-499 Very High Risk >=500Cholesterol Reference Range: Low Risk <200 Borderline 200-239 High Risk >240HDL Cholesterol Reference Range: Low Risk >=60 High Risk <40LDL Cholesterol Reference Range: Optimal <100 Near Optimal 100-129 Borderline 130-159 High 160-189 Very High >=190 HEMOGLOBIN [id number] 20:15:00* Test Item Value Reference Range Comments HEMOGLOBIN A1C (BEAKER) (test kxmr=364) 7.7 % 4.3-6.1 CBC W/PLT COUNT & AUTO [id number] 16:07:00* Test Item Value Reference Range Comments WHITE BLOOD CELL COUNT (BEAKER) (test eotx=399) 8.7 K/ L 3.5-10.5 RED BLOOD CELL COUNT (BEAKER) (test qybl=751) 5.35 M/ L 4.63-6.08 HEMOGLOBIN (BEAKER) (test wjul=095) 16.1 GM/DL 13.7-17.5 HEMATOCRIT (BEAKER) (test ygho=642) 48.5 % 40.1-51.0 MEAN CORPUSCULAR VOLUME (BEAKER) (test pnji=247) 90.7 fL 79.0-92.2 MEAN CORPUSCULAR HEMOGLOBIN (BEAKER) (test fjdm=766) 30.1 pg 25.7-32.2 MEAN CORPUSCULAR HEMOGLOBIN CONC (BEAKER) (test crxf=096) 33.2 GM/DL 32.3-36.5 RED CELL DISTRIBUTION WIDTH (BEAKER) (test ypsz=178) 13.9 % 11.6-14.4 PLATELET COUNT (BEAKER) (test dggb=725) 286 K/CU MM 150-450 MEAN PLATELET VOLUME (BEAKER) (test lwxn=918) 10.3 fL 9.4-12.4 NUCLEATED RED BLOOD CELLS (BEAKER) (test akpw=755) 0 /100 WBC 0-0 NEUTROPHILS RELATIVE PERCENT (BEAKER) (test pmwe=615) 72 % LYMPHOCYTES RELATIVE PERCENT (BEAKER) (test mrhn=603) 18 % MONOCYTES RELATIVE PERCENT (BEAKER) (test ncrw=953) 8 % EOSINOPHILS RELATIVE PERCENT (BEAKER) (test qaoz=170) 1 % BASOPHILS RELATIVE PERCENT (BEAKER) (test effb=943) 1 % NEUTROPHILS ABSOLUTE COUNT (BEAKER) (test ssmp=724) 6.27 K/ L 1.78-5.38 LYMPHOCYTES ABSOLUTE COUNT (BEAKER) (test zxmr=199) 1.55 K/ L 1.32-3.57 MONOCYTES ABSOLUTE COUNT (BEAKER) (test mhvf=679) 0.70 K/ L 0.30-0.82 EOSINOPHILS ABSOLUTE COUNT (BEAKER) (test vwfu=090) 0.09 K/ L 0.04-0.54 BASOPHILS ABSOLUTE COUNT (BEAKER) (test ujdl=728) 0.05 K/ L 0.01-0.08 IMMATURE GRANULOCYTES-RELATIVE PERCENT (BEAKER) (test prqg=8754) 1 % 0-1 LIPID [id number] 16:04:00* Test Item Value Reference Range Comments TRIGLYCERIDES (BEAKER) (test yuqy=949) 293 mg/dL CHOLESTEROL (BEAKER) (test xlrq=748) 203 mg/dL HDL CHOLESTEROL (BEAKER) (test eqkh=200) 32 mg/dL LDL CHOLESTEROL CALCULATED (BEAKER) (test iktl=358) 112 mg/dL Triglyceride Reference Range: Low Risk <150 Borderline 150-199 High Risk 200-499 Very High Risk >=500Cholesterol Reference Range: Low Risk <200 Borderline 200-239 High Risk >240HDL Cholesterol Reference Range: Low Risk >=60 High Risk <40LDL Cholesterol Reference Range: Optimal <100 Near Optimal 100-129 Borderline 130-159 High 160-189 Very High >=190 COMPREHENSIVE METABOLIC [id number] 16:04:00* Test Item Value Reference Range Comments TOTAL PROTEIN (BEAKER) (test avku=793) 7.1 gm/dL 6.0-8.3 ALBUMIN (BEAKER) (test gzgo=0896) 4.2 g/dL 3.5-5.0 ALKALINE PHOSPHATASE (BEAKER) (test vdqo=074) 69 U/L 40-150 BILIRUBIN TOTAL (BEAKER) (test anrp=625) 0.7 mg/dL 0.2-1.2 SODIUM (BEAKER) (test uzhq=744) 139 meq/L 136-145 POTASSIUM (BEAKER) (test xnfj=767) 4.0 meq/L 3.5-5.1 CHLORIDE (BEAKER) (test fyyd=741) 105 meq/L 98-107 CO2 (BEAKER) (test vmab=414) 24 meq/L 22-29 BLOOD UREA NITROGEN (BEAKER) (test nmld=647) 18 mg/dL 7-21 CREATININE (BEAKER) (test blwb=490) 0.90 mg/dL 0.57-1.25 GLUCOSE RANDOM (BEAKER) (test yyul=358) 246 mg/dL 70-105 CALCIUM (BEAKER) (test mhmi=188) 9.5 mg/dL 8.4-10.2 AST (SGOT) (BEAKER) (test sreh=285) 11 U/L 5-34 ALT (SGPT) (BEAKER) (test ssjv=838) 7 U/L 6-55 EGFR (BEAKER) (test gwra=7509) 84 mL/min/1.73 sq m ESTIMATED GFR IS NOT ACCURATE CREATININE CLEARANCE IN PREDICTING GLOMERULAR FILTRATION RATE. ESTIMATED GFR IS NOT APPLICABLE FOR DIALYSIS PATIENTS. TISSUE [id number] 11:22:00Surgical Pathology Report Case: [id number] Authorizing Provider: Wm Daigle MD Collected: 10/28/2016 1506 Ordering Location: [facility] Received: 10/28/2016 1507 SERVICES Pathologist: Kal López MD Specimen: Intervertebral Disc, L4- L5 VERTEBRAL COLUMN, INTERVERTEBRAL DISC, L4-5, DISCECTOMY:FRAGMENTS OF LIGAMENTUM FLAVUM AND FIBROCARTILAGE WITH DEGENERATIVE CHANGESSMALL FRAGMENTS OF BONE Signing Pathologist Direct Phone Line: [phone] signed by Kal López MD on 11/02/2016 at 11:22 [id number]; [id number] stenosis, synovial cyst of lumbar facet jointDisc L4-J1Pjxmvxgx in saline labeled "intervertebral disc", description "L4-5" is a 2.3 x 2.2 x 0.3 cm aggregate of pink-cardenas to yellow rubbery, fibrillar, cartilaginous and osseous tissue. The specimen is entirely submitted in cassette A1 for decalcification. KAH/DB/pl PerformedPOCT-GLUCOSE [id number] 16:24:00* Test Item Value Reference Range Comments POC-GLUCOSE METER (BEAKER) (test vdsi=9454) 172 mg/dL 70-[address] [facility] [address] [facility] [address] BASIC METABOLIC [id number] 18:40:00* Test Item Value Reference Range Comments SODIUM (BEAKER) (test twtw=976) 139 meq/L 136-145 POTASSIUM (BEAKER) (test wuef=517) 4.2 meq/L 3.5-5.1 CHLORIDE (BEAKER) (test jriw=179) 106 meq/L 98-107 CO2 (BEAKER) (test coed=652) 23 meq/L 22-29 BLOOD UREA NITROGEN (BEAKER) (test dzjf=211) 18 mg/dL 7-21 CREATININE (BEAKER) (test yuit=597) 0.84 mg/dL 0.57-1.25 GLUCOSE RANDOM (BEAKER) (test oiyv=614) 100 mg/dL 70-105 CALCIUM (BEAKER) (test jkec=732) 9.3 mg/dL 8.4-10.2 EGFR (BEAKER) (test ibag=9608) 91 mL/min/1.73 sq m ESTIMATED GFR IS NOT ACCURATE CREATININE CLEARANCE IN PREDICTING GLOMERULAR FILTRATION RATE. ESTIMATED GFR IS NOT APPLICABLE FOR DIALYSIS PATIENTS. CBC W/PLT COUNT & AUTO [id number] 18:24:00* Test Item Value Reference Range Comments WHITE BLOOD CELL COUNT (BEAKER) (test coau=686) 12.6 K/ L 4.0-10.0 RED BLOOD CELL COUNT (BEAKER) (test wwcl=836) 5.16 M/ L 4.20-5.80 HEMOGLOBIN (BEAKER) (test crku=941) 15.9 GM/DL 13.0-16.8 HEMATOCRIT (BEAKER) (test dkfd=626) 46.9 % 40.0-50.0 MEAN CORPUSCULAR VOLUME (BEAKER) (test owxh=283) 90.8 fL 82.0-98.0 MEAN CORPUSCULAR HEMOGLOBIN (BEAKER) (test nhoh=870) 30.8 pg 27.0-33.0 MEAN CORPUSCULAR HEMOGLOBIN CONC (BEAKER) (test afbx=673) 33.9 GM/DL 32.0-36.0 RED CELL DISTRIBUTION WIDTH (BEAKER) (test vqoc=105) 13.3 % 10.3-14.2 PLATELET COUNT (BEAKER) (test uojm=744) 234 K/CU MM 150-430 MEAN PLATELET VOLUME (BEAKER) (test ecak=469) 7.7 fL 6.5-10.5 NUCLEATED RED BLOOD CELLS (BEAKER) (test shtr=760) 0 /100 WBC 0-0 NEUTROPHILS RELATIVE PERCENT (BEAKER) (test ilyl=202) 66 % LYMPHOCYTES RELATIVE PERCENT (BEAKER) (test feek=144) 22 % MONOCYTES RELATIVE PERCENT (BEAKER) (test zesq=357) 8 % EOSINOPHILS RELATIVE PERCENT (BEAKER) (test ylrp=662) 4 % BASOPHILS RELATIVE PERCENT (BEAKER) (test fjry=483) 1 % NEUTROPHILS ABSOLUTE COUNT (BEAKER) (test utye=022) 8.31 K/ L 1.80-8.00 LYMPHOCYTES ABSOLUTE COUNT (BEAKER) (test fjol=747) 2.73 K/ L 1.48-4.50 MONOCYTES ABSOLUTE COUNT (BEAKER) (test cxic=953) 0.96 K/ L 0.00-1.30 EOSINOPHILS ABSOLUTE COUNT (BEAKER) (test fhhh=968) 0.53 K/ L 0.00-0.50 BASOPHILS ABSOLUTE COUNT (BEAKER) (test rlki=218) 0.09 K/ L 0.00-0.20 0.00PROTHROMBIN TIME/[id number] 18:20:00* Test Item Value Reference Range Comments PROTIME (BEAKER) (test nftl=504) 13.5 seconds 11.7-14.7 INR (BEAKER) (test kyys=670) 1.0 <=5.9 RECOMMENDED COUMADIN/WARFARIN INR THERAPY RANGESSTANDARD DOSE: 2.0 - 3.0 Inclu javier: PROPHYLAXIS for venous thrombosis, systemic embolization; TREATMENT for adrian ous thrombosis and/or pulmonary embolus.HIGH RISK: Target INR is 2.5-3.5 for pat ients with mechanical heart valves.[id number] 18:20:00* Test Item Value Reference Range Comments PARTIAL THROMBOPLASTIN TIME (BEAKER) (test wsns=283) 31.8 seconds 22.5-36.0 URINALYSIS W/ REFLEX URINE [id number] 18:14:00* Test Item Value Reference Range Comments COLOR (BEAKER) (test sund=130) Yellow CLARITY (BEAKER) (test skcu=227) Clear SPECIFIC GRAVITY UA (BEAKER) (test cxrl=396) 1.023 1.001-1.035 PH UA (BEAKER) (test bpeo=007) 5.5 5.0-8.0 PROTEIN UA (BEAKER) (test qmkm=840) Negative Negative GLUCOSE UA (BEAKER) (test jked=846) 50 mg/dL Negative KETONES UA (BEAKER) (test juan=137) Trace Negative BILIRUBIN UA (BEAKER) (test omwu=804) Negative Negative BLOOD UA (BEAKER) (test ujny=936) Negative Negative NITRITE UA (BEAKER) (test smtf=499) Negative Negative LEUKOCYTE ESTERASE UA (BEAKER) (test jkfk=940) Negative Negative UROBILINOGEN UA (BEAKER) (test pbhp=590) 2.0 mg/dL 0.2-1.0 RBC UA (BEAKER) (test kcxa=506) < /HPF WBC UA (BEAKER) (test xbzr=685) < /HPF MUCUS (BEAKER) (test ufga=3377) Occasional SQUAMOUS EPITHELIAL (BEAKER) (test fvci=132) < /HPF SOURCE(BEAKER) (test ygjb=4812)
--- NOTE | 2019-05-04 22:55 | Diagnostic Imaging Report ---
EXAMINATION: Head and cervical spine CT without contrast. HISTORY: Status post fall, loss balance and hit the right forehead, right forehead hematoma. COMPARISON: None. TECHNIQUE: Multidetector axial images were obtained without contrast from the foramen magnum to the vertex and through the cervical spine. The images were reconstructed using brain and bone algorithms. Thin section brain images were reformatted into coronal and sagittal planes. Dose modulation, iterative reconstruction, and/or weight based adjustment of the mA/kV was utilized to reduce the radiation dose to as low as reasonably achievable. HEAD CT FINDINGS: Skull/scalp: No lytic or blastic lesions. Right forehead scalp/soft tissue swelling without underlying fractures.. Parenchyma: Few scattered amount of intraventricular blood matter hypodensities, most likely nonspecific chronic microvascular ischemic changes. Small chronic lacunar infarct in the general of the right internal capsule and right frontal warren radiata. No mass, hemorrhage or CT evidence of acute vascular insult. Brain volume: Mild generalized parenchymal nodes, with a slightly disproportionate bilateral medial temporal/hippocampal volume loss. Ventricles: No hydrocephalus or displacement. Arteries: No density suggestive of thrombus. Dural sinuses: No abnormal density. Extra-axial spaces: No abnormal density. Foramen magnum: No mass, Chiari malformation, or basilar invagination. Sella: No obvious mass. Paranasal/mastoid sinuses: Imaged portions unremarkable. CERVICAL SPINE CT FINDINGS: Alignment:Normal alignment and lordosis. Soft tissues: Normal. Vertebrae: Normal height and density. No acute fracture, infection or neoplasm. Degenerative changes: C1-C2: Normal C2-C3: Bilateral uncovertebral and facet arthrosis, disc osteophyte complex formation, moderate spinal canal and severe bilateral neural foraminal stenoses. C3-C4: Status post decompressive laminectomy. Bilateral uncovertebral and facet arthrosis. Severe bilateral neural foraminal stenosis C4-C5: . Status post decompressive laminectomy. Bilateral uncovertebral and facet arthrosis. Mild foraminal stenosis mainly on the right. C5-C6: Disc osteophyte complex formation, bilateral uncovertebral and facet arthrosis. Moderate spinal canal and severe bilateral foraminal stenosis. C6-C7: Bilateral uncovertebral arthrosis. Mild bilateral foraminal narrowing. C7-T1: Normal IMPRESSION: Head CT: 1. No acute postraumatic intracranial hemorrhage. 2. Small right forehead soft tissue hematoma without underlying fractures. 3. Mild chronic microvascular ischemic changes. Cervical spine CT: 1. No acute fractures or dislocations. 2. Chronic degenerative changes as described. Note: Acute post traumatic spinal cord, vascular or ligamentous injury cannot adequately be assessed with CT. Signed by: Dr. Zuri Noonan M.D. on 05/04/2019 10:52 PM
[2019-05-04 23:25] VITALS: BP 134/81
== END 2019-05-04 23:40 | disposition home or self-care (01) ==
LOC: ER 21:35
DX: S00.83XA Contusion of other part of head, initial encounter (principal); W01.0XXA Fall on same level from slipping, tripping and stumbling without subsequent striking against object, initial encounter; Y92.008 Other place in unspecified non-institutional (private) residence as the place of occurrence of the external cause; E11.9 Type 2 diabetes mellitus without complications; G20 Parkinson's disease; F02.80 Dementia in other diseases classified elsewhere, unspecified severity, without behavioral disturbance, psychotic disturbance, mood disturbance, and anxiety; F41.9 Anxiety disorder, unspecified; K21.9 Gastro-esophageal reflux disease without esophagitis
CPT/HCPCS: 70450; 72125; 99283